=== PATIENT | male | born 1965 | race Caucasian/White ===

== ENCOUNTER 2018-06-07 07:21 | Emergency (ER) | payer OTHER ==
[2018-06-07 07:32] VITALS: BP 144/82; PULSE 60; RESP 20; TEMP 98
[2018-06-07] MEDS ORDERED: GELATIN SPONGE,ABSORB (SMALL) 1 EACH SPONGE TOPICAL STA (07:39)
--- NOTE | 2018-06-07 07:47 | ED ---
Wound/Laceration HPI - General Chief Complaint: Wound/Laceration Stated Complaint: [facility] Lac on Finger Time Seen by Provider: 06/07/18 07:33 Source: patient, RN notes reviewed Mode of arrival: ambulatory Limitations: no limitations - History of Present Illness Initial Comments: This is a 52-year-old male presents emergency Department with chief complaint of laceration to his right hand fourth digit. Patient states that he thought the water line was leaking on his mold press and states that he went to check it but the mold started closing and he states he felt a pressure on his finger and he pulled back. Patient states that he is missing part of the skin on the distal tip of his finger. Patient states his tetanus updated 2 years ago. Patient states she has full range of motion he did wrap . Patient denies any paresthesias. Patient offers no other complaints. - Related Data Previous Rx's Medication Instructions Recorded Cephalexin [Keflex] 500 mg PO Q8HR #21 cap 06/07/18 Allergies Allergy/AdvReac Type Severity Reaction Status Date / Time No Known Allergies Allergy Verified 06/07/18 07:32 Review of Systems ROS Statement: Those systems with pertinent positive or pertinent negative responses have been documented in the HPI. ROS Other: All systems not noted in ROS Statement are negative. Past Medical History Past Medical History: No Reported History History of Any Multi-Drug Resistant Organisms: None Reported Past Surgical History: Orthopedic Surgery Past Psychological History: No Psychological Hx Reported Smoking Status: Never smoker Past Alcohol Use History: Occasional Past Drug Use History: None Reported General Exam Limitations: no limitations General appearance: alert, in no apparent distress Respiratory exam: Present: normal lung sounds bilaterally. Absent: respiratory distress, wheezes, rales, rhonchi, stridor Cardiovascular Exam: Present: regular rate, normal rhythm, normal heart sounds. Absent: systolic murmur, diastolic murmur, rubs, gallop, clicks Extremities exam: Present: other (Right hand fourth digit on the pad of the distal tip there is a skin avulsion approximately 2 cm x 2 cm minimal venous ooze patient for range of motion nail is intact.) Skin exam: Present: warm, dry Course Vital Signs 06/07/18 07:29 Temperature 98.0 F Pulse Rate 60 Respiratory 20 Rate Blood Pressure 144/82 O2 Sat by Pulse 100 Oximetry Procedures - Procedures Initial comment: Right hand fourth digit skin avulsion was cleaned with saline, Gelfoam was applied in finger was wrapped. Medical Decision Making - Medical Decision Making 52-year-old male presented for finger injury. Patient has skin avulsion with no acute fracture of the finger. This was cleaned, Gelfoam was applied and fingers rat. Patient's tetanus is up-to-date. Patient will follow up with [facility] and return parameters were discussed. Disposition Clinical Impression: Avulsion of skin of finger Disposition: HOME SELF-CARE Condition: Stable Instructions: Skin Avulsion (ED) Additional Instructions: Please return to the Emergency Department if symptoms worsen or any other concerns. Prescriptions: Cephalexin [Keflex] 500 mg PO Q8HR #21 cap Is patient prescribed a controlled substance at d/c from ED?: No Referrals: None,Stated [Primary Care Provider] - 1-2 days Time of Disposition: 08:14
--- NOTE | 2018-06-07 07:56 | XR ---
EXAMINATION TYPE: XR finger RT DATE OF EXAM: 06/07/2018 COMPARISON: NONE HISTORY: Laceration injury with pain. TECHNIQUE: 3 views right fourth finger are obtained. FINDINGS: No acute fracture or dislocation is evident. Joint spaces are maintained. No suspicious rad iodense soft tissue foreign body noted. IMPRESSION: As above.
== END 2018-06-07 08:32 | disposition home or self-care (01) ==
LOC: EC 07:21
DX: S61.204A Unspecified open wound of right ring finger without damage to nail, initial encounter (principal); W45.8XXA Other foreign body or object entering through skin, initial encounter; Y99.0 Civilian activity done for income or pay
CPT/HCPCS: 99283

== ENCOUNTER 2022-06-07 12:04 | Emergency (ER) | payer OTHER ==
--- NOTE | 2022-06-07 12:14 | ED ---
General Adult HPI - General Stated complaint: Fall Time Seen by Provider: 06/07/22 12:09 Source: patient, EMS, RN notes reviewed Mode of arrival: EMS Limitations: no limitations - History of Present Illness Initial comments: Patient is a pleasant 56-year-old male presenting to the emergency department following a fall. Patient was trying to get into his house on a upper level balcony. Patient fell back approximately 2022 feet. Patient landed on his left side. Patient denies head injury or loss of consciousness. No alcohol or street drugs. Patient does have discomfort currently rated 7/10. Patient did receive some fentanyl by EMS prior to arrival. Patient does not want further pain medication at this time. Patient denies dyspnea. Discomfort does increase with deep breaths. Patient mostly has discomfort between his left lower ribs and left pelvis. Discomfort does increase with position changes. - Related Data Home Medications Medication Instructions Recorded Confirmed No Known Home Medications 06/07/22 06/07/22 Allergies Allergy/AdvReac Type Severity Reaction Status Date / Time No Known Allergies Allergy Verified 06/07/22 13:24 Review of Systems ROS Statement: Those systems with pertinent positive or pertinent negative responses have been documented in the HPI. ROS Other: All systems not noted in ROS Statement are negative. Constitutional: Denies: fever Eyes: Denies: eye pain ENT: Denies: ear pain Respiratory: Reports: as per HPI. Denies: cough, dyspnea Cardiovascular: Denies: chest pain Gastrointestinal: Denies: abdominal pain Genitourinary: Denies: dysuria Musculoskeletal: Reports: as per HPI, back pain Skin: Denies: rash Neurological: Denies: weakness Past Medical History Past Medical History: No Reported History History of Any Multi-Drug Resistant Organisms: None Reported Past Surgical History: Orthopedic Surgery Past Psychological History: No Psychological Hx Reported Past Alcohol Use History: Occasional Past Drug Use History: None Reported General Exam Limitations: no limitations General appearance: alert, in no apparent distress Head exam: Present: normocephalic Eye exam: Present: normal appearance, PERRL ENT exam: Present: normal oropharynx Neck exam: Present: normal inspection. Absent: tenderness Respiratory exam: Present: normal lung sounds bilaterally. Absent: chest wall tenderness Cardiovascular Exam: Present: regular rate, normal rhythm GI/Abdominal exam: Present: soft. Absent: distended, tenderness Extremities exam: Present: normal inspection, full ROM, other (Patient does have some tenderness left iliac crest). Absent: tenderness Back exam: Present: tenderness (Patient does have tenderness left posterior ribs and left upper gluteal region). Absent: vertebral tenderness Neurological exam: Present: alert, oriented X3, CN II-XII intact. Absent: motor sensory deficit Expanded Neurological exam: Present: protecting the airway Speech: Present: fluid speech Sensory exam: Upper Extremity Light Touch: Normal, Lower Extremity Light Touch: Normal Motor strength exam: RUE: 5, LUE: 5, RLE: 5, LLE: 5 Eye Response: (4) open spontaneously Motor Response: (6) obeys commands Verbal Response: (5) oriented Psychiatric exam: Present: normal affect, normal mood Skin exam: Present: normal color Course Vital Signs 06/07/22 12:14 Temperature 97.5 F L Pulse Rate 82 Respiratory 18 Rate Blood Pressure 117/79 O2 Sat by Pulse 92 L Oximetry - Reevaluation(s) Reevaluation #1: 06/07/22 12:59 Patient reevaluated and updated. Case discussed with Dr. Hodgson who did review films. He feels patient will likely need transfer for probable ileum repair. 06/07/22 13:34 Case was discussed with Dr. Zambrano, who will accept transfer. Transfer team notified. Patient again updated. EKG Findings - EKG Comments: EKG Findings:: Sinus rhythm rate 75. [place] 135. QRS 94. QT 376. QTc 405. Normal axis. Normal QRS. No acute ST change. Medical Decision Making - Medical Decision Making Both trauma surgeon and orthopedic surgeon did not feel patient needed pelvic binder. Likely morbidly sugar injury. Patient is hemodynamically stable at this time. No dyspnea. Pulse ox stable. - Lab Data Result diagrams: 06/07/22 12:08 06/07/22 12:08 Lab Results 06/07/22 06/07/22 06/07/22 Range/Units 12:08 12:08 12:08 WBC 9.1 (3.8-10.6) k/uL RBC 4.40 (4.30-5.90) m/uL Hgb 13.9 (13.0-17.5) gm/dL Hct 40.8 (39.0-53.0) % MCV 92.7 (80.0-100.0) fL MCH 31.6 (25.0-35.0) pg MCHC 34.1 (31.0-37.0) g/dL RDW 12.0 (11.5-15.5) % Plt Count 261 (150-450) k/uL MPV 7.1 Neutrophils % 80 % Lymphocytes % 13 % Monocytes % 4 % Eosinophils % 2 % Basophils % 1 % Neutrophils # 7.3 (1.3-7.7) k/uL Lymphocytes # 1.2 (1.0-4.8) k/uL Monocytes # 0.3 (0-1.0) k/uL Eosinophils # 0.1 (0-0.7) k/uL Basophils # 0.1 (0-0.2) k/uL PT 11.3 (9.0-12.0) sec INR 1.0 (<1.2) APTT 22.1 (22.0-30.0) sec Sodium 137 (137-145) mmol/L Potassium 3.8 (3.5-5.1) mmol/L Chloride 104 (98-107) mmol/L Carbon Dioxide 27 (22-30) mmol/L Anion Gap 6 mmol/L BUN 13 (9-20) mg/dL Creatinine 1.08 (0.66-1.25) mg/dL Est GFR (CKD-EPI)AfAm 89 (>60 ml/min/1.73 sqM) Est GFR (CKD-EPI)NonAf 77 (>60 ml/min/1.73 sqM) Glucose 136 H (74-99) mg/dL POC Glucose (mg/dL) (70-110) mg/dL POC Glu Extrusion Die Template Maker ID Calcium 8.8 (8.4-10.2) mg/dL Total Bilirubin 0.4 (0.2-1.3) mg/dL AST 58 (17-59) U/L ALT 43 (4-49) U/L Alkaline Phosphatase 41 (38-126) U/L Total Protein 7.0 (6.3-8.2) g/dL Albumin 4.4 (3.5-5.0) g/dL Serum Alcohol <10 mg/dL Blood Type Blood Type Confirm Blood Type Recheck Bld Type Recheck Status Antibody Screen Spec Expiration Date 06/07/22 06/07/22 06/07/22 Range/Units 12:08 12:10 12:11 WBC (3.8-10.6) k/uL RBC (4.30-5.90) m/uL Hgb (13.0-17.5) gm/dL Hct (39.0-53.0) % MCV (80.0-100.0) fL MCH (25.0-35.0) pg MCHC (31.0-37.0) g/dL RDW (11.5-15.5) % Plt Count (150-450) k/uL MPV Neutrophils % % Lymphocytes % % Monocytes % % Eosinophils % % Basophils % % Neutrophils # (1.3-7.7) k/uL Lymphocytes # (1.0-4.8) k/uL Monocytes # (0-1.0) k/uL Eosinophils # (0-0.7) k/uL Basophils # (0-0.2) k/uL PT (9.0-12.0) sec INR (<1.2) APTT (22.0-30.0) sec Sodium (137-145) mmol/L Potassium (3.5-5.1) mmol/L Chloride (98-107) mmol/L Carbon Dioxide (22-30) mmol/L Anion Gap mmol/L BUN (9-20) mg/dL Creatinine (0.66-1.25) mg/dL Est GFR (CKD-EPI)AfAm (>60 ml/min/1.73 sqM) Est GFR (CKD-EPI)NonAf (>60 ml/min/1.73 sqM) Glucose (74-99) mg/dL POC Glucose (mg/dL) 138 H (70-110) mg/dL POC Glu Extrusion Die Template Maker ID Glenna Killian Calcium (8.4-10.2) mg/dL Total Bilirubin (0.2-1.3) mg/dL AST (17-59) U/L ALT (4-49) U/L Alkaline Phosphatase (38-126) U/L Total Protein (6.3-8.2) g/dL Albumin (3.5-5.0) g/dL Serum Alcohol mg/dL Blood Type O Negative Blood Type Confirm O Negative Blood Type Recheck No Previous Record Bld Type Recheck Status CABO Indicated Antibody Screen NEGATIVE Spec Expiration Date 06/10/2022 - 2308 - Radiology Data Radiology results: report reviewed (Computed tomography scan brain and C-spine reveals no acute intercranial abdomen Roel. No C-spine fracture or dislocation. Small visualized pneumothorax and partially visualized hemothorax.), image reviewed (Chest x-ray shows left rib fractures 3 through 9 with hazy airspace opacity, possible atelectasis or contusion. Pelvic x-ray shows multiple pelvic fractures left inferior and superior pubic rami as well as left iliac bone.) Interpreted by me: Reviewed CT chest abdomen and pelvis and discussed with radiologist. Multiple left-sided segmental rib fractures. Small effusion/hemothorax less than 15%. Right sacrum and right sacroiliac fracture. Left inferior and superior pubic rami fracture comminuted acetabulum fracture in the left. High left ilium fracture. Left L1 and L2 transverse process fractures. Iliac his muscle is full. Some blood near the bladder likely from pelvic fractures. Critical Care Time Critical Care Time: Yes Total Critical Care Time: 37 Disposition Clinical Impression: Fall, Pelvic fracture, Fracture, ilium closed, Multiple rib fractures, Pulmonar y contusion, Hemothorax Disposition: OTHER INSTITUTION NOT DEFINED Condition: Serious Is patient prescribed a controlled substance at d/c from ED?: No Referrals: None,Stated [Primary Care Provider] - 1-2 days Time of Disposition: 13:35 - Out of Hospital Transfer - Req. Specs Out of Hospital Transfer - Requested Specifics: Other Emergency Center
[2022-06-07 12:17] VITALS: BP 117/79; PULSE 82; RESP 18; TEMP 97.5
[2022-06-07 12:18] LABS: Glucose,Whole Blood 138 mg/dL (70-110)
[2022-06-07 12:21] LABS: Basophils # (A) 0.1 k/uL (0-0.2); Basophils % (A) 1 %; Eosinophils # (A) 0.1 k/uL (0-0.7); Eosinophils % (A) 2 %; HCT 40.8 % (39.0-53.0); HGB 13.9 gm/dL (13.0-17.5); Lymphocytes # (A) 1.2 k/uL (1.0-4.8); Lymphocytes % (A) 13 %; MCH 31.6 pg (25.0-35.0); MCHC 34.1 g/dL (31.0-37.0); MCV 92.7 fL (80.0-100.0); Mean Platelet Volume 7.1; Monocytes # (A) 0.3 k/uL (0-1.0); Monocytes % (A) 4 %; Neutrophils # (A) 7.3 k/uL (1.3-7.7); Neutrophils % (A) 80 %; Platelet Count 261 k/uL (150-450); WBC 9.1 k/uL (3.8-10.6)
[2022-06-07 12:30] LABS: ALT 43 U/L (4-49); AST 58 U/L (17-59); African American GFR (CKD) 89 (>60 ml/min/1.73 sqM); Albumin 4.4 g/dL (3.5-5.0); Alcohol <10 mg/dL; Alkaline Phosphatase 41 U/L (38-126); Anion Gap 6 mmol/L; Blood Urea Nitrogen 13 mg/dL (9-20); Calcium 8.8 mg/dL (8.4-10.2); Carbon Dioxide 27 mmol/L (22-30); Chloride 104 mmol/L (98-107); Glucose 136 mg/dL (74-99); Non-African American GFR(CKD) 77 (>60 ml/min/1.73 sqM); Potassium 3.8 mmol/L (3.5-5.1); Sodium 137 mmol/L (137-145); Total Bilirubin 0.4 mg/dL (0.2-1.3)
--- NOTE | 2022-06-07 12:31 | XR ---
EXAMINATION TYPE: XR chest 1V portable DATE OF EXAM: 06/07/2022 12:20 PM COMPARISON: None TECHNIQUE: XR chest 1V portable Frontal view of the chest. CLINICAL INDICATION:Male, 56 years old with history of trauma; FINDINGS: Lungs/Pleura: Left lung diffuse haziness is identified. There is no evidence of pleural effusion, foc al consolidation, or pneumothorax. Pulmonary vascularity: Unremarkable. Heart/mediastinum: Cardiomediastinal silhouette is unremarkable. Musculoskeletal: Multiple left-sided rib fractures are identified involving left ribs 3 through 9 wit h mild displacement. IMPRESSION: 1. Multiple left-sided acute rib fractures involving at least ribs 3 through 9. 2. Hazy airspace opacities in left likely secondary to atelectasis and/or pulmonary contusion.
--- NOTE | 2022-06-07 12:34 | XR ---
EXAMINATION TYPE: XR pelvis AP view DATE OF EXAM: 06/07/2022 12:20 PM INDICATION: Patient age:Male; 56 years old; Reason for study: Trauma. COMPARISON: None TECHNIQUE: The pelvis was examined in a single projection. FINDINGS: Multiple fractures are identified including the left inferior and superior pubic ramus, lef t iliac bone and left rib which is partially visualized. Pelvic phleboliths are present. IMPRESSION: Multiple acute fractures of the pelvis identified including the left inferior and superior pubic howard s as well as the left iliac bone.
[2022-06-07 12:35] LABS: Partial Thromboplastin Time 22.1 sec (22.0-30.0); Prothrombin Time 11.3 sec (9.0-12.0)
--- NOTE | 2022-06-07 13:05 | CT ---
EXAMINATION TYPE: CT brain cspine wo con CT DLP: 1327.3 mGycm, Automated exposure control for dose reduction was used. DATE OF EXAM: 06/07/2022 12:57 PM COMPARISON: None.. CLINICAL INDICATION:Male, 56 years old with history of trauma; Fall from approximately 22 ft TECHNIQUE: Brain: Multiple axial CT images of the brain were obtained without IV contrast. Cspine: Axial CT images from the skull base to the inferior aspect of T2 we obtained without intraven ous contrast. Coronal and sagittal reformatted images were also reviewed. FINDINGS: Brain: Extra-axial spaces: No abnormal extra-axial fluid collections. Ventricular system: Within normal limits Cerebral parenchyma: No acute intraparenchymal hemorrhage or mass effect. The tellez-white junction is well differentiated. Cerebellum: Unremarkable. Mass effect: No evidence of midline shift. Intracranial vasculature: unremarkable Soft tissues: Normal. Calvarium/osseous structures: No depressed skull fracture. Paranasal sinuses and mastoid air cells: Clear. Visualized orbits: Orbital contents are intact. Cervical spine: Fracture: None. Osseous structures: Multilevel degenerative disc disease changes with endplate spurring and disc oste ophyte complex's. Vertebral alignment: Within normal limits. Spinal canal/Neural Foramina: No evidence of significant spinal canal narrowing. No evidence for sign ificant neural foraminal stenosis. Neck soft tissues: There is subcutaneous edema most pronounced involving the left back. Other: The airway is patent. Partially visualized small left pneumothorax. There is a left hemothorax . IMPRESSION: 1. No acute intracranial process. 2. No evidence of cervical spine fracture. 3. Mild multilevel degenerative disc disease. 4. Partially visualized small left pneumothorax. 5. Subcutaneous emphysema left shoulder/back. 6. Partially visualized left hemothorax. 7. Please see CT chest abdomen pelvis for further findings.
[2022-06-07] MEDS ORDERED: HYDROmorphone 1 MG/ML 1 ML SYRINGE IVP STA (13:06)
--- NOTE | 2022-06-07 13:36 | CT ---
EXAMINATION TYPE: CT ChestAbdPelvis w con CT DLP: 911.7 mGycm, Automated exposure control for dose reduction was used. DATE OF EXAM: 06/07/2022 12:42 PM COMPARISON: Chest and pelvic radiographs from same day. CLINICAL INDICATION:Male, 56 years old with history of trauma;, Fall from approximately 22 ft Technique: Multiple axial images of the chest, abdomen, and pelvis were obtained following the intrav enous administration of 100 mL Isovue-300. Two-dimensional coronal and sagittal reconstructions were obtained. Findings: CHEST: LUNGS/ PLEURA: High-density left pleural effusion consistent with blood products with fluid fluid/hem atocrit level also present. There is airspace opacities along the lung parenchyma near the chest wall was prepped and left lower lobe. There is at least 2 left lower lobe pneumatoceles. The right lung demonstrates some posterior atelectasis. No evidence of pleural effusion on the right. Some disease seen within the right medial lung strandy linear structures. AIRWAY: Patent and unremarkable. HEART: Size within normal limits. MEDIASTINUM: No gross evidence of adenopathy. VASCULATURE: No aortic aneurysm. MUSCULOSKELETAL: Multiple fractures are identified including left rib 3 posterior laterally with disp lacement, and anteriorly, left rib 4 anteriorly and posteriorly laterally with displacement, left rib 5 posteriorly laterally with displacement, posteriorly and anteriorly, left rib 6 suspected buckling anteriorly and posteriorly and posteriorly laterally with displacement, left rib 7 posteriorly later ally with displacement, posteriorly and anteriorly with cortical buckling, left rib 8 posteriorly lat erally, posteriorly, left rib 9 posteriorly laterally and posteriorly, left rib 10 posteriorly, left 11 rib posteriorly and posterolaterally, and left rib 12 posterior laterally. SOFT TISSUES/LYMPH NODES: Unremarkable. LOWER NECK: Subcutaneous emphysema within the soft tissues on the left ribs. ABDOMEN: ABDOMEN LIVER: Cyst within segment IVb. Scattered too small to characterize hypodensities likely representing cysts. GALLBLADDER AND BILE DUCTS: Unremarkable. PANCREAS: Unremarkable. SPLEEN: Unremarkable. ADRENAL GLANDS: Unremarkable. KIDNEYS AND URETERS: No evidence of hydronephrosis or renal calculus. The ureters are unremarkable. PELVIS BLADDER: Bladder appears intact. REPRODUCTIVE: Unremarkable. ABDOMEN & PELVIS STOMACH AND BOWEL: No evidence of bowel obstruction. Appendix is normal. PERITONEUM: No evidence of pneumoperitoneum or free fluid. VASCULATURE: Arterial phase imaging demonstrates no evidence for acute arterial contrast extravasatio n. MUSCULOSKELETAL: Acute fractures through the left transverse process of L1 and L2 without displacement. Acute fractures through the right iliac bone near the sacroiliac joint, right aspect of the sacrum zo ne 1, left iliac bone with comminution with intra-articular comminuted extension to the acetabulum. A cute fractures through the left superior and inferior pubic rami. Intramuscular hematomas detected giving asymmetric fullness involving the left pelvic wall and obtur ator muscle, as well as the left iliacus muscle with retroperitoneal blood products noted. No evidenc e for active arterial extravasation. LYMPH NODES: No gross evidence for lymphadenopathy. SOFT TISSUE/ABDOMINAL WALL: Unremarkable Findings communicated to Bernadette Napier 06/07/2022 1:[address] Valerio Caldwell. IMPRESSION: ABD/PELVIS: 1. Comminuted left pelvic fractures with left hip intra-articular extension. Additional fractures of the right sacrum zone 1 and right iliac bone near the sacroiliac joint. Associated left iliacus and left obturator muscle hematomas and retroperitoneal strandy blood products adjacent to the left ingui nal canal and left aspect of the bladder near states of fracture. 2. The abdominal organs appear intact without evidence for injury. 3. No evidence of active arterial extravasation. CHEST: 1. Multiple rib fractures of the left ribs including some segmental rib fractures involving ribs 3 t hrough 9 and 11 with additional fractures of ribs 10, and 12. 2. Left-sided airspace opacities consistent with pulmonary contusions with pneumatoceles. 3. Small left hemothorax. 4. Subcutaneous emphysema on the left chest ledesma. 5. Small right posterior medial pneumothorax.
== END 2022-06-07 14:20 | disposition other institution (70) ==
LOC: EC 12:04
DX: S32.9XXA Fracture of unspecified parts of lumbosacral spine and pelvis, initial encounter for closed fracture (principal); S22.49XA Multiple fractures of ribs, unspecified side, initial encounter for closed fracture; W13.0XXA Fall from, out of or through balcony, initial encounter
CPT/HCPCS: 93005; 86900; 86901; 80053; 85025; 85610; 85730; 86850; 80320; 72170; 71045; 72125; 70450; 71260; 74177; 99291; 96374; J1170; Q9967; 36415